=== PATIENT | male | born 1955 ===

== ENCOUNTER 2021-01-15 15:01 | Emergency (ER) | payer SELFPAY ==
[~2021-01-15] VITALS: Ht 165.1 cm; Wt 93.4 kg
--- NOTE | 2021-01-15 15:33 | NUR ---
PATIENT WALKED BACK FROM TRIAGE WITH CHIEF C/O CHEST PAIN, DIZZINESS AND FEVER. PER PATIENT SYMPTOMS STARTED WEDNESDAY, HE IS DRIVING BACK TO THE [place] FROM [place]. PATIENT REPORTS DIARRHEA SINCE LAST NIGHT, HAS HAD BOTH COVID VACCINES. RODNEY, CONNECTED TO MONITOR, VSS, CALL LIGHT WITHIN REACH.
--- NOTE | 2021-01-15 16:34 | NUR ---
ERMD AT BEDSIDE FOR EVALUATION.
[2021-01-15] MEDS ORDERED: LABETALOL 5MG/ML, 20ML ONE (17:26)
[2021-01-15] MEDS ORDERED: SODIUM CHLORIDE 0.9% 1,000 ML IV ONE (17:30)
[2021-01-15] MEDS ORDERED: SODIUM CHLORIDE 0.9%, 500ML IVBOLUS ONE (17:30)
[2021-01-15] MEDS ORDERED: SODIUM CHLORIDE FLUSH 10ML SYR IVF ONE (17:30)
[2021-01-15] MEDS ORDERED: LABETALOL 5MG/ML, 20ML IVPush ONE (17:30)
[2021-01-15 17:45] LABS: BASOPHILS % (AUTO) 1 % (0-1); EOSINOPHILS % (AUTO) 2 % (1-7); LYMPHOCYTES % (AUTO) 30 % (22-44); MEAN CORPUSCULAR HEMOGLOBIN 32.1 pg (27.5-34.5); MEAN CORPUSCULAR HGB CONC 34.5 g/dL (33.2-36.2); MEAN PLATELET VOLUME 8.7 fL (7.4-10.4); MONOCYTES % (AUTO) 9 % (2-9); NEUTROPHILS % (AUTO) 57 % (42-75); PLATELET COUNT 218 x10^3/uL (130-400); RED BLOOD COUNT 4.96 x10^6/uL (4.38-5.82)
--- NOTE | 2021-01-15 17:45 | NUR ---
[place] in [facility] - 01/15/21 at 1750 by [email or web address] PATIENT MEDICATED PER RODNEY Mcrae, CONNECTED TO MONITOR, VSS, PATIENT STATES CHEST PAIN IS A 1/10 AT THIS TIME, CALL LIGHT WITHIN REACH, NO FURTHER NEEDS AT THIS TIME.
--- NOTE | 2021-01-15 17:50 | NUR ---
PATIENT'S BP IS 142/94, AND HR 72, LABETALOL NOT GIVEN AT THIS TIME, WILL CONTINUE TO MONITOR BP AND REASSESS NEED FOR MEDICATION.
[2021-01-15 17:58] LABS: ALANINE AMINOTRANSFERASE 23 U/L (12-78); ALBUMIN 3.2 g/dL (3.4-5.0); ANION GAP 5 mmol/L (5-15); CHLORIDE 108 mmol/L (98-107); CREATININE 0.74 mg/dL (0.7-1.3)
[2021-01-15 18:08] LABS: ALKALINE PHOSPHATASE 77 U/L (45-117); BILIRUBIN,TOTAL 0.9 mg/dL (0.2-1.0); TOTAL PROTEIN 6.8 g/dL (6.4-8.2); TROPONIN I < 0.015 ng/mL (0.000-0.045)
[2021-01-15 19:22] LABS: MICROSCOPIC INDICATED
--- NOTE | 2021-01-15 19:22 | NUR ---
PT ASLEEP IN BED, ALL NEEDS IN REACH, CALL LIGHT IN REACH, NAD AT THIS TIME, VSS, BP IS 142/97, VASOTEC ORDERED BUT THIS RN WILL HOLD MEDICATION FOR WHEN BP IS ELEVATED
[2021-01-15] MEDS ORDERED: ENALAPRILAT 1.25 MG/ML, 2ML IV ONE (19:30)
[2021-01-15] MEDS ORDERED: ENALAPRILAT 1.25 MG/ML, 1ML ONE (20:28)
--- NOTE | 2021-01-15 20:30 | NUR ---
PTS BLOOD PRESSURE IS 157/100, STATED TO ADMINSITER VASOTEC
[2021-01-15 21:07] VITALS: BP 139/90
== END 2021-01-15 21:10 | disposition home or self-care (01) ==
LOC: ED 21:04
DX: R42 Dizziness and giddiness (principal); I10 Essential (primary) hypertension; R55 Syncope and collapse; H57.89 Other specified disorders of eye and adnexa; R94.31 Abnormal electrocardiogram [ECG] [EKG]
CPT/HCPCS: 36415; 71045; 80053; 81001; 83036; 83735; 84443; 84484; 85025; 93005; 96361; 96374; 99285; J7030; J7040